=== PATIENT | male | born 1960 | race Caucasian/White ===

== ENCOUNTER 2024-04-14 09:01 | Outpatient (CLI) | payer OTHER, SELFPAY ==
--- NOTE | 2024-04-14 09:07 | FL_ITS ---
WS: [id number] Exam: FL barium swallow [id number] Date/Time of Exam: 04/14/2024 9:10 AM Reason For Exam: [id number] Fluoroscopy time: 2min [id number] minutes # of spot films: 4 Oropharyngeal phase of swallowing was normal. There is no sign of intrinsic esophageal mass or strict ure. Esophageal motility was normal. The esophagus is not displaced. No obvious hiatal hernia. No gas troesophageal reflux was noted during fluoroscopy. No aspiration was noted. FL/FL barium swallow [id number] IMPRESSION: 1. Unremarkable esophagram.
== END 2024-04-14 09:02 | disposition home or self-care (01) ==
LOC: RAD 09:03
PROVIDERS: PCP Family Medicine; Visit Provider Specialist
DX: R13.10 Dysphagia, unspecified (principal)
CPT/HCPCS: 74220

== ENCOUNTER 2024-04-18 08:36 | Outpatient (CLI) | payer OTHER, SELFPAY ==
--- NOTE | 2024-04-18 08:46 | CTR_ITS ---
PROCEDURE INFORMATION: Exam: CT Neck With Contrast Exam date and time: 04/18/2024 9:46 AM Age: 64 years old Clinical indication: Dysphagia / difficulty swallowing; Additional info: Dysphagia, PT having xray too TECHNIQUE: Imaging protocol: Computed tomography of the neck with contrast. Radiation optimization: All CT scans at this facility use at least one of these dose optimization techniques: automated exposure control; mA and/or kV adjustment per patient size (includes targeted exams where dose is matched to clinical indication); or iterative reconstruction. Contrast material: OMNI 350; Contrast volume: 100 ml; Contrast route: INTRAVENOUS (IV); COMPARISON: RF FL barium swallow modifd [id number] 04/18/2024 9:01 AM RADIATION DOSE METRICS: Total DLP (mGy-cm): 325.91 FINDINGS: Salivary glands: Normal. Glands are normal in size. Pharynx: Unremarkable. No significant tonsillar enlargement. Prevertebral and retropharyngeal spaces: Unremarkable. Larynx: Unremarkable. Epiglottis is normal. Thyroid: Normal. No enlarged or calcified nodules. Trachea: Visualized trachea is unremarkable. Lungs: Granulomatous calcification right lung apex otherwise apices unremarkable. Lymph nodes: Small cervical lymph nodes along the internal jugular chains bilaterally likely benign based on size criteria. Vasculature: Note is made of calcification right carotid bulb resulting in narrowing at the origin the right ICA. Bones/joints: Mild degenerative changes lower cervical spine. No acute bony abnormalities. Soft tissues: No evidence of neck mass. CT/CT neck w con* [id number] IMPRESSION: 1. No acute abnormalities or evidence of neck mass. 2. Calcified plaque right carotid bulb with some narrowing of the right ICA. Recommend nonemergent carotid Doppler for further evaluation.
--- NOTE | 2024-04-18 08:46 | FL_ITS ---
WS: [id number] FL barium swallow modifd [id number] REASON FOR EXAM: Other dysphagia FLUOROSCOPY TIME: 3min [id number] # OF SPOT FILMS: 0 FINDINGS: Examination was supervised by the speech therapy department. Swallowing of multiple consistencies of barium was performed with the patient in the sitting upright lateral projection. There was a delay in the passage of the barium tablet from the distal esophagus into the stomach. A f ormal barium swallow is recommended. A formal report of the swallowing will be rendered by the speech therapy department. FL/FL barium swallow modifd [id number] IMPRESSION: Modified barium swallow as above. Formal esophagram is recommended.
[2024-04-18 10:42] LABS: Blood Urea Nitrogen 10 mg/dL (8-23)
[2024-04-18] MEDS: iohexol 350 mg/mL 500 mL Btl (per mL) IV (10:53)
== END 2024-04-18 08:37 | disposition home or self-care (01) ==
LOC: RAD 08:36
PROVIDERS: Radiology Neuroradiology; PCP Family Medicine; Visit Provider Specialist
DX: I65.21 Occlusion and stenosis of right carotid artery (principal); R93.3 Abnormal findings on diagnostic imaging of other parts of digestive tract; R13.10 Dysphagia, unspecified
CPT/HCPCS: 70491; 74230; 82565; 84520; 92611